=== PATIENT | female | born 1940 | race Caucasian/White ===

== ENCOUNTER → 2016-09-27 | Outpatient (CLI) | payer MEDICARE, OTHER ==
[~2016-09-27] MED LIST: LORT5TAB PO
[2016-09-27 09:07] LABS: MEAN CELL VOLUME 94.7 FL (80.0-100.0); MEAN CORPUSCULAR HEMOGLOBIN 30.5 PG (27.0-34.0); MEAN CORPUSCULAR HGB CONC 32.2 % (32.0-36.0); PLATELET COUNT 217 TH/MM3 (150-450); RED BLOOD COUNT 4.54 MIL/MM3 (4.00-5.30); RED CELL DISTRIBUTION WIDTH 12.3 % (11.6-17.2); REVIEW FLAG FINAL; WHITE BLOOD COUNT 7.7 TH/MM3 (4.0-11.0)
[2016-09-27 14:00] LABS: BICARBONATE 29.6 MEQ/L (21.0-32.0)
[2016-09-27 14:11] LABS: HDL CHOLESTEROL 48.3 MG/DL (40.0-60.0); INDIRECT BILIRUBIN 0.2 MG/DL (0.0-0.8); TOTAL BILIRUBIN ADULT 0.3 MG/DL (0.2-1.0)
== END ==
LOC: OLAB 08:25
PROVIDERS: ATTEND Family Medicine
DX: E78.2 Mixed hyperlipidemia (principal); E55.9 Vitamin D deficiency, unspecified; Z79.899 Other long term (current) drug therapy
CPT/HCPCS: 36415; 80048; 80061; 80076; 82306; 85027

== ENCOUNTER → 2017-03-28 | Outpatient (CLI) | payer MEDICARE, OTHER ==
[2017-03-28 13:19] LABS: BICARBONATE 30.7 MEQ/L (21.0-32.0)
[2017-03-28 13:22] LABS: HDL CHOLESTEROL 44.2 MG/DL (40.0-60.0)
== END ==
LOC: OLAB 07:53
PROVIDERS: ATTEND Family Medicine
DX: E55.9 Vitamin D deficiency, unspecified (principal); E78.2 Mixed hyperlipidemia
CPT/HCPCS: 36415; 80048; 80061; 82306; 84450; 84460

== ENCOUNTER → 2017-10-03 | Outpatient (CLI) | payer MEDICARE, OTHER ==
[2017-10-03 10:00] LABS: CHOLESTEROL/ HDL RATIO 2.8 RATIO; HDL CHOLESTEROL 43.5 MG/DL (40.0-60.0)
== END ==
LOC: OLAB 07:16
PROVIDERS: ATTEND Family Medicine
DX: E78.2 Mixed hyperlipidemia (principal); E55.9 Vitamin D deficiency, unspecified; Z13.1 Encounter for screening for diabetes mellitus
CPT/HCPCS: 36415; 80061; 82306; 82652; 82947; 84450; 84460